=== PATIENT | female | born 1985 | race Caucasian/White ===

== ENCOUNTER 2018-10-18 10:31 | Outpatient (CLI) | payer MEDICAID ==
[2018-10-18] MEDS ORDERED: TERBUTALINE 1 ML (11:46)
[2018-10-18 12:40] LABS: ADD UMIC YES; UR ASCORBIC ACID NEGATIVE (NEGATIVE); UR BILIRUBIN (Dip) NEGATIVE (NEGATIVE); UR BLOOD (Dip) 1+ mg/dL (NEGATIVE); UR CLARITY SLIGHTLY CLOUDY (CLEAR); UR COLOR YELLOW (YELLOW); UR GLUCOSE (Dip) NEGATIVE (NEGATIVE); UR KETONES (Dip) NEGATIVE (NEGATIVE); UR LEUKOCYTE ESTERASE (Dip) TRACE Leu/ul (NEGATIVE); UR NITRITE (Dip) NEGATIVE (NEGATIVE); UR RBC 23 /HPF (0-5); UR SPECIFIC GRAVITY (Dip) 1.013 (1.003-1.030); UR SQUAMOUS EPITHELIAL CELL FEW /HPF (FEW); UR TOTAL PROTEIN (Dip) NEGATIVE (NEGATIVE); UR UROBILINOGEN (Dip) NEGATIVE (NEGATIVE); UR WBC 2 /HPF (0-5)
[2018-10-18] MEDS: LACTATED RINGER'S 1,000 ML IV* (13:13)
[2018-10-18] MEDS: TERBUTALINE 1 MG/ML INJ SC (13:14)
== END 2018-10-18 14:43 | disposition home or self-care (01) ==
LOC: OBT 10:31 → L-D 10:31 → OBT 14:43
DX: O62.9 Abnormality of forces of labor, unspecified (principal); Z3A.36 36 weeks gestation of pregnancy
CPT/HCPCS: 36415; 76818; 81001; 96360; 96361

== ENCOUNTER 2018-11-02 17:33 | Inpatient (IN) | payer MEDICAID ==
[2018-11-02 18:41] LABS: ADD UMIC YES; UR ASCORBIC ACID NEGATIVE (NEGATIVE); UR BACTERIA FEW /HPF (NONE SEEN); UR BILIRUBIN (Dip) NEGATIVE (NEGATIVE); UR BLOOD (Dip) 2+ mg/dL (NEGATIVE); UR CLARITY CLEAR (CLEAR); UR COLOR STRAW (YELLOW); UR GLUCOSE (Dip) NEGATIVE (NEGATIVE); UR KETONES (Dip) NEGATIVE (NEGATIVE); UR LEUKOCYTE ESTERASE (Dip) NEGATIVE Leu/ul (NEGATIVE); UR MUCUS FEW /HPF (NONE SEEN); UR NITRITE (Dip) NEGATIVE (NEGATIVE); UR RBC 3 /HPF (0-5); UR SPECIFIC GRAVITY (Dip) 1.005 (1.003-1.030); UR SQUAMOUS EPITHELIAL CELL FEW /HPF (FEW); UR TOTAL PROTEIN (Dip) NEGATIVE (NEGATIVE); UR UROBILINOGEN (Dip) NEGATIVE (NEGATIVE); UR WBC 3 /HPF (0-5)
[2018-11-02 19:35] LABS: RUPTURE FETAL MEMBRANES POSITIVE (NEGATIVE)
[2018-11-02] MEDS ORDERED: LIDOCAINE 1% (MPF) 30 ML INJ INJ (20:30)
[2018-11-02] MEDS ORDERED: OXYTOCIN 30 UNITS/LR 500 ML IV ×2 (20:30)
[2018-11-02] MEDS ORDERED: METHYLERGONOVINE 0.2 MG INJ IM (20:30)
[2018-11-02] MEDS ORDERED: IBUPROFEN 600 MG TAB PO (20:30)
[2018-11-02] MEDS ORDERED: CARBOPROST 250 MCG INJ IM (20:30)
[2018-11-02] MEDS ORDERED: MISOPROSTOL 200 MCG TAB PR (20:30)
[2018-11-02 21:00] LABS: ADD MAN DIFF? NO
[2018-11-02 21:08] LABS: WHITE BLOOD COUNT 7.5 10^3/ul (4.8-10.8)
[2018-11-02 21:08] LABS: BASOPHILS % 0.4 % (0.0-2.0); EOSINOPHILS # 0.1 10^3/ul (0.0-0.5); EOSINOPHILS % 1.7 % (0.0-7.0); HEMATOCRIT 33.3 % (37.0-47.0); HEMOGLOBIN 10.5 g/dl (12.0-16.0); LYMPHOCYTES # 1.4 10^3/ul (0.8-2.9); LYMPHOCYTES % 18.7 % (15.0-51.0); MEAN CORPUSCULAR HEMOGLOBIN 26.4 pg (29.0-33.0); MEAN CORPUSCULAR HGB CONC 31.5 g/dl (32.0-37.0); MEAN CORPUSCULAR VOLUME 83.7 fl (82.0-101.0); MEAN PLATELET VOLUME 11.9 fl (7.4-10.4); MONOCYTE # 0.6 10^3/ul (0.3-0.9); MONOCYTES % 7.3 % (0.0-11.0); NEUTROPHIL # 5.3 10^3/ul (1.6-7.5); NEUTROPHILS % 70.6 % (39.0-77.0); PLATELET COUNT 172 10^3/UL (140-415); RED BLOOD COUNT 3.98 10^6/ul (4.20-5.40)
[2018-11-02 21:28] LABS: PROTIME 12.2 Sec (11.9-14.9)
[2018-11-02 21:38] LABS: PARTIAL THROMBOPLASTIN TIME 26.9 Sec (23.0-35.0)
[2018-11-02 22:10] LABS: HEPATITIS B SURFACE ANTIGEN NEGATIVE (NEGATIVE)
[2018-11-02] MEDS: AMPICILLIN 2 GM/NS (PMX) 100 ML IV (22:57)
[2018-11-02] MEDS: LACTATED RINGER'S 1,000 ML IV (22:57)
[2018-11-03] MEDS: AMPICILLIN 1 GM/NS (PMX) 50 ML IV ×5 (02:21→18:38)
[2018-11-03] MEDS: OXYTOCIN 30 UNITS/LR 500 ML IV ×2 (02:39→18:03)
[2018-11-03] MEDS: BUTORPHANOL 2 MG INJ IV (05:10)
[2018-11-03] MEDS: LACTATED RINGER'S 1,000 ML IV ×5 (06:08→14:41)
[2018-11-03] MEDS ORDERED: NALOXONE (0.4 MG/ML) INJ IV (11:00)
[2018-11-03] MEDS: FENTAnyl 2MCG/ML-ROPIV 0.2% 100 ML BAG EPI ×2 (11:42→16:46)
[2018-11-03 17:11] LABS: RAPID PLASMA REAGIN NONREACTIVE (NR)
[2018-11-03] MEDS: CEFAZOLIN 2 GM/50 ML (PMX) 50 ML IVPB (18:43)
[2018-11-03] MEDS: ACETAMINOPHEN 1000MG/100ML IV 100 ML IVPB (19:29)
[2018-11-03] MEDS ORDERED: HYDROCODONE/APAP (5/325) TAB PO ×2 (21:30)
[2018-11-03] MEDS ORDERED: ZOLPIDEM 5 MG TAB PO (21:30)
[2018-11-03] MEDS ORDERED: DIBUCAINE 1% 30 GM OINT TOP (21:30)
[2018-11-03] MEDS ORDERED: OXYTOCIN 30 UNITS/LR 500 ML IV (21:30)
[2018-11-03] MEDS ORDERED: METHYLERGONOVINE 0.2 MG INJ IM (21:30)
[2018-11-03] MEDS ORDERED: WITCH HAZEL/GLYCERIN PAD PR (21:30)
[2018-11-03] MEDS ORDERED: CARBOPROST 250 MCG INJ IM (21:30)
[2018-11-03] MEDS ORDERED: MISOPROSTOL 200 MCG TAB PR (21:30)
[2018-11-03] MEDS: SENNA/DOCUSATE NA (8.6MG/50MG) TAB PO (21:31)
[2018-11-03] MEDS: BENZOCAINE 20% 56 ML SPRAY TOP (21:31)
[2018-11-03] MEDS: MAGNESIUM HYDROXIDE 30ML CUP PO (21:31)
[2018-11-03] MEDS: LANOLIN HPA 1 PKT TOP (21:32)
[2018-11-03] MEDS: CEPHALEXIN 500 MG CAP PO (23:46)
[2018-11-03] MEDS: IBUPROFEN 600 MG TAB PO (23:47)
[2018-11-03] MEDS: LACTATED RINGER'S 1,000 ML IV* (23:47)
[2018-11-04] MEDS: LACTATED RINGER'S 1,000 ML IV* ×3 (05:09→21:15)
[2018-11-04] MEDS: CEPHALEXIN 500 MG CAP PO ×4 (05:43→23:45)
[2018-11-04] MEDS: IBUPROFEN 600 MG TAB PO ×4 (05:44→23:45)
[2018-11-04 08:45] LABS: ADD MAN DIFF? NO
[2018-11-04 08:48] LABS: WHITE BLOOD COUNT 10.5 10^3/ul (4.8-10.8)
[2018-11-04 08:48] LABS: BASOPHILS % 0.3 % (0.0-2.0); EOSINOPHILS # 0.1 10^3/ul (0.0-0.5); EOSINOPHILS % 0.8 % (0.0-7.0); HEMATOCRIT 28.9 % (37.0-47.0); HEMOGLOBIN 9.4 g/dl (12.0-16.0); LYMPHOCYTES # 1.6 10^3/ul (0.8-2.9); LYMPHOCYTES % 14.7 % (15.0-51.0); MEAN CORPUSCULAR HEMOGLOBIN 26.9 pg (29.0-33.0); MEAN CORPUSCULAR HGB CONC 32.5 g/dl (32.0-37.0); MEAN CORPUSCULAR VOLUME 82.8 fl (82.0-101.0); MEAN PLATELET VOLUME 12.1 fl (7.4-10.4); MONOCYTE # 0.7 10^3/ul (0.3-0.9); MONOCYTES % 6.7 % (0.0-11.0); NEUTROPHIL # 8.1 10^3/ul (1.6-7.5); NEUTROPHILS % 76.6 % (39.0-77.0); NUCLEATED RED BLOOD CELLS% 0.2 /100WBC (0.0-0.0); PLATELET COUNT 158 10^3/UL (140-415); RED BLOOD COUNT 3.49 10^6/ul (4.20-5.40); RED CELL DISTRIBUTION WIDTH 15.6 % (11.5-14.5)
[2018-11-04] MEDS: SENNA/DOCUSATE NA (8.6MG/50MG) TAB PO ×2 (08:50→21:00)
[2018-11-04] MEDS: MAGNESIUM HYDROXIDE 30ML CUP PO ×2 (08:50→21:00)
[2018-11-05] MEDS: LACTATED RINGER'S 1,000 ML IV* (05:09)
[2018-11-05] MEDS: CEPHALEXIN 500 MG CAP PO ×2 (06:21→11:12)
[2018-11-05] MEDS: IBUPROFEN 600 MG TAB PO ×2 (06:21→11:12)
[2018-11-05] MEDS: SENNA/DOCUSATE NA (8.6MG/50MG) TAB PO (08:37)
[2018-11-05] MEDS: MAGNESIUM HYDROXIDE 30ML CUP PO (08:37)
[2018-11-05] MEDS: DIPHTH/TET/ACEL PERTUSS (ADULT) 0.5 ML VIAL IM* (08:38)
[2018-11-05] MEDS: VARICELLA VACCINE LIVE/PF 1,350 UNIT/0.5 ML ML SC* (08:38)
[2018-11-05] MEDS: MEASLES,MUMPS,RUBELLA VACCINE INJ SC* (08:38)
== END 2018-11-05 13:35 | disposition home or self-care (01) | DRG 807 ==
LOC: OBT 17:33 → L-D 17:35 → PP1 11-03 19:52 → OBT 19:50 → L-D 19:50
PROVIDERS: Obstetrics & Gynecology
PROC: 10E0XZZ Delivery of Products of Conception, External Approach (ICD-10-PCS; principal; 2018-11-03)
DX: O69.81X0 Labor and delivery complicated by cord around neck, without compression, not applicable or unspecified (principal); Z37.0 Single live birth; Z3A.38 38 weeks gestation of pregnancy
CPT/HCPCS: 62319; 76815; 76818; 81001; 84112; 85025; 85610; 85730; 86592; 86850; 86900; 86901; 87086; 87340